=== PATIENT | female | born 1970 | race American Indian/Alaskan Native ===

== ENCOUNTER 2019-03-06 18:12 | Emergency (ER) | payer MEDICARE ==
--- NOTE | 2019-03-06 18:46 | Event Note ---
ED Screening Note ED Screening Note: pt presents with right eye pain, erythema, drainage for one week pt does wear contacts but does not have any contacts in currently crusting/eyelashes matting denies getting anything in the eye no vision changes will d/c from triage
[2019-03-06 18:47] VITALS: BP 152/92
--- NOTE | 2019-03-06 18:48 | Emergency Department Report ---
ED Eye Problem HPI - General Chief complaint: Eye Problems Stated complaint: RT EYE/SEVERE SHARP PAIN Time Seen by Provider: 03/06/19 18:42 Source: patient Mode of arrival: Ambulatory Limitations: No Limitations - History of Present Illness Initial comments: pt is a 48 yo female who presents with right eye pain, erythema, drainage for one week. pt does wear contacts but does not have any contacts in currently. she states she removed the contacts a week ago. she states she has also had crusting/eyelashes matting. pt denies getting anything in the eye. she denies any vision changes. - Related Data Previous Rx's Medication Instructions Recorded Last Taken Type Ciprofloxacin HCl 1 drop OD QID 7 Days #1 bottle 03/06/19 Unknown Rx Allergies Allergy/AdvReac Type Severity Reaction Status Date / Time codeine Allergy Shortness Verified 01/30/14 03:07 of Breath ED Review of Systems ROS: Stated complaint: RT EYE/SEVERE SHARP PAIN Other details as noted in HPI Comment: All other systems reviewed and negative ED Past Medical Hx - Past Medical History Previous Medical History?: Yes Hx Pulmonary Embolism: Yes Additional medical history: PE in 2009, gestational diabetes. 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 - Surgical History Past Surgical History?: Yes Additional Surgical History: right ovary removal after rupture - Social History Smoking Status: Never Smoker Substance Use Type: None - Medications Home Medications: Home Medications Medication Instructions Recorded Confirmed Last Taken Type Ciprofloxacin HCl 1 drop OD QID 7 Days #1 bottle 03/06/19 Unknown Rx ED Physical Exam - General Limitations: No Limitations General appearance: alert, in no apparent distress - Head Head exam: Present: atraumatic, normocephalic - Eye Eye exam: Present: PERRL, EOMI, conjunctival injection (right), other (very small white spot present to the iris) - ENT ENT exam: Present: mucous membranes moist - Neurological Exam Neurological exam: Present: alert, oriented X3 - Psychiatric Psychiatric exam: Present: normal affect, normal mood - Skin Skin exam: Present: warm, dry, intact ED Course Vital Signs 03/06/19 18:45 Temperature 99.8 F H Pulse Rate 77 Respiratory 18 Rate Blood Pressure 152/92 O2 Sat by Pulse 99 Oximetry ED Medical Decision Making - Medical Decision Making pt is a 48 yo female who presents with right eye pain, erythema, drainage for one week. pt does wear contacts but does not have any contacts in currently. she states she removed the contacts a week ago. she states she has also had crusting/eyelashes matting. pt denies getting anything in the eye. she denies any vision changes. on exam: very small white spot present to the right iris could represent corneal ulcer or mucus, right conjunctival injection. pt given prescription for cipro eye drops. advised pt to please use medication as prescribed. please follow up with an inside technical sales representative in the next 24 hours. return to the emergency room for any new or worsening symptoms. discussed the importance of follow up with an inside technical sales representative ROBERT to avoid any permanent damage to the eye. Critical care attestation.: If time is entered above; I have spent that time in minutes in the direct care of this critically ill patient, excluding procedure time. ED Disposition Clinical Impression: Conjunctivitis Qualifiers: Conjunctivitis type: acute Acute conjunctivitis type: unspecified Laterality: right Qualified Code(s): H10.31 - Unspecified acute conjunctivitis, right eye Corneal ulcer Qualifiers: Laterality: right Qualified Code(s): H16.001 - Unspecified corneal ulcer, right eye Disposition: DC-01 TO HOME OR SELFCARE Is pt being admited?: No Does the pt Need Aspirin: No Condition: Stable Instructions: Conjunctivitis (ED), Corneal Ulcer (ED) Additional Instructions: please use medication as prescribed. please follow up with an inside technical sales representative in the next 24 hours. return to the emergency room for any new or worsening symptoms . Prescriptions: Ciprofloxacin HCl 1 drop OD QID 7 Days #1 bottle Referrals: BELEN ANTON MD [Staff Physician] - 24 Hours POLO JOHNSON MD [Staff Physician] - 24 Hours Time of Disposition: 19:17 Print Language: MAORI
== END 2019-03-06 19:38 | disposition home or self-care (01) ==
LOC: ED 18:12
DX: H10.9 Unspecified conjunctivitis (principal); H16.001 Unspecified corneal ulcer, right eye; Z86.711 Personal history of pulmonary embolism; Z98.890 Other specified postprocedural states; Z79.899 Other long term (current) drug therapy